=== PATIENT | male | born 1980 | race Two or more races ===

== ENCOUNTER 2022-06-06 16:55 | Outpatient (REF) | payer OTHER, SELFPAY ==
--- NOTE | ~2022-06-06 | XR_ITS ---
EXAMINATION: XR SHOULDER, RIGHT CLINICAL INFORMATION: Right COMPARISON: None TECHNIQUE: AP external rotation, Grashey, scapular Y, and axillary views of the right shoulder. FINDINGS: The bones and soft tissues are normal. No fracture. Glenohumeral and acromioclavicular alignment is anatomic with normal joint space. No abnormal soft tissue calcifications. XR/XR shoulder RT min 2V IMPRESSION: No acute osseous changes to explain patient's pain symptoms, no fracture or dislocation.
== END 2022-06-06 16:56 | disposition home or self-care (01) ==
LOC: HO.HOSX 16:55
PROVIDERS: Visit Provider Orthopaedic Surgery
DX: M67.921 Unspecified disorder of synovium and tendon, right upper arm (principal)
CPT/HCPCS: 73030

== ENCOUNTER 2022-07-01 15:00 | Outpatient (RCR) | payer OTHER, SELFPAY ==
--- NOTE | 2022-06-19 14:01 | MHC.PT.EP ---
[facility] [place] Office [place] Office [place] Office [address] Halina Draper [address] [phone] F: [phone] F: [phone] F: [phone] F: [phone] Physical Therapy Plan of Care Date of Evaluation: Date of Surgery: Diagnosis: Tendinopathy of right biceps tendon Assessment: 41 YO MALE REF TO PT W TENDINOPATHY OF Rt BICEPS TENDON- HE NOTES HE HAD BEEN WORKING OUT AT THE GYM AND OVERDID HIS PULLUPS, Rt ANT SH IRRIT NEVER COMPLETELY RESOLVED AND HE HAS SINCE HELD HIS UEs WORKOUTS. Pt HAD AN ORTHO CONSULT, XRAYS TAKEN, REF TO PT- HE IS Rt HAND DOMINANT. Pt HAS DECR POSTURAL AWARENESS, TIGHT PECT MM/ ANT SH; (+) STRENGTH DEFICITS IN POST RC/ SCAP MM, HYPOMOBILE THORACIC REGION. 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 HE IS LIMITED WITH SLEEPING-ESPEC SL , PERFORMING HIS REGULAR GYM WORKOUTS, AND HE NOTES HE IS UNABLE TO LIFT HEAVY ITEMS. Pt WOULD BENEFIT FROM PT TO ADDRESS THE ABOVE FINDINGS, EASE TISSUE TENSION/ PECT DOMINANCE, IMPROVE POSTURE, AND DEV A PROGR HEP TO BALANCE POST RC/ SCAP STRENGTH, AND ADDRESS SX MGMT TECHN. Frequency and Duration: The patient will be seen 2 x WK x 6 WKS (Pt GOING ON VACATION 07/02/22 x 3 WKS) Short Term Goals: *DECREASE ANT Rt SH PAIN TO 2-3/10 AT MAX *Pt INDEP SELF CORRECT POSTURE IN 3:3 TASKS *FULL, SX FREE AROM Rt SH COMPLEX / RESOLVED PECT DOMINANCE *RESUME REG ADLs EVIDENT W IMPROVED SPADI SCORE (AT EVAL 62/130) Shelter Goals: *Pt INDEP W PROGRESSIVE HEP AND SELF SX MGMT TECHN *Pt DEMON PROPER, EFFICIENT FORM W SIMULATED GYM EXER, TO REDUCE STRESS TO ANT Rt SH/ BICEP TENDON *5/5 Rt SH COMPLEX/ SCAP Treatment Plan: Modalities to reduce pain, spasms and effusion. Manual therapy to restore motion and function. Therapeutic exercise to improve strength and flexibility. Neuromuscular re-education for posture and balance. Therapeutic activities to return to functional activities of daily living. Electronically signed by: RHIANNON MOSSPT Please sign and return to therapist. Thank you for your referral.
--- NOTE | 2022-08-06 08:10 | MHC.PT.DC ---
[facility] [place] Office [place] Office [place] Office [address] Halina Draper 140 [facility] [phone] F: [phone] F: [phone] F: [phone] F: [phone] Physical Therapy Discharge Report Diagnosis: Tendinopathy of right biceps tendon Date of Surgery: Date of Evaluation: 06/19/22 Date of Discharge: 08/06/22 Treatments to Date: 3 Cancellations to Date: 1 No Shows to Date: 0 Discharge Status: Improved Function Independent with HEP Patient Elected to Stop Discharge Summary: Pt BENEFITTED FROM PT, SHE HAS A PROGRESSIVE HEP AND AT LAST ATTENDED PT APPT, SHE HAD REDUCED PAIN AND SXS- Pt WENT ON VACATION AND DID NOT RETURN FOR F/U APPTS. Electronically signed by: RHIANNON MOSS,PT Please sign and return to therapist. Thank you for your referral.
== END 2022-08-06 08:09 | disposition home or self-care (01) ==
LOC: HO.PT 15:00
PROVIDERS: Visit Provider Physician Assistant
DX: M67.921 Unspecified disorder of synovium and tendon, right upper arm (principal)
CPT/HCPCS: 97035; 97110; 97140; 97161

== ENCOUNTER 2023-05-26 10:33 | Outpatient (REF) | payer OTHER, SELFPAY ==
[2023-05-26 14:39] LABS: Alanine Aminotransferase 21 U/L (0-40); Albumin Level 4.3 g/dL (3.5-5.0); Alkaline Phosphatase 73 U/L (39-117); Anion Gap 12 (12-20); Aspartate Amino Transferase 18 U/L (5-37); Bilirubin Total 0.7 mg/dL (0.0-1.0); Blood Urea Nitrogen 14 mg/dL (9-16); Calcium 8.9 mg/dL (8.4-10.2); Carbon Dioxide 26 mmol/L (22-29); Chloride 107 mmol/L (96-108); Cholesterol 179 mg/dL (<200); Estimated Glomerular Filt Rate > 60; Glucose Random 91 mg/dL (60-115); HDL Cholesterol 49 mg/dL (>40); LDL Cholesterol Calculated 114 mg/dL (<100); Potassium 3.7 mmol/L (3.3-5.1); Sodium 141 mmol/L (135-145); Total Protein 6.6 g/dL (6.5-8.0); Triglycerides 83 mg/dL (<150)
[2023-05-26 14:55] LABS: TSH reflex Free T4 0.41 uIU/mL (0.32-4.0)
== END 2023-05-26 10:34 | disposition home or self-care (01) ==
LOC: HO.CHCLDS 10:33
PROVIDERS: Visit Provider Internal Medicine
DX: Z00.00 Encounter for general adult medical examination without abnormal findings (principal); E78.00 Pure hypercholesterolemia, unspecified
CPT/HCPCS: 36415; 80053; 80061; 84443

== ENCOUNTER 2024-09-16 16:11 | Outpatient (REF) | payer OTHER, SELFPAY ==
--- OUTSIDE RECORDS SUMMARY | 2024-09-16 18:01 | XMS_ITS | Encounter Summary ---
Author Organization [employer] Address [address] [address] Care Team Providers Care Rental Representative Name Role Phone Allyssa Angelo MD Primary Care Provider [phone]- [phone] Reason for Visit * Reason Comments Follow-up Encounter Details Date Type Department Care Team ([facility] Contact Info) Description 09/16/2024 4:00 PM EDT Office Visit [facility] [address] [place] [address] Allyssa Angelo MD [address] [place] [address] Other specified glaucoma, unspecified laterality (Primary Dx); Premature ejaculation Social History Tobacco Use Types Packs/Day Years Used Date Smoking Tobacco: Unknown Smokeless Tobacco: Never Comments:Smokes Hooka every 2 days Alcohol Use Standard Drinks/Week Comments Never 0 (1 standard drink = 0.6 oz pur e alcohol) Depression Answer Date Recorded Patient Health Questionnaire-9 Score 4 05/26/2023 Patient Health Questionnaire-9 Score 4 05/26/2023 Last PHQ-9: Questionnaire Data Not on file 1 07/27/2022 Housing Stability Answer Date Recorded What is your housing situation today? I have maggie gutiérrez 05/19/[address] you li ve. Do you have problems with any of the following? None of the above 05/19/2023 Food Insecurity Answer Date Recorded Within the past 12 months, y ou worried that your food would run out before you got money to buy more: Never True 05/19/2023 Within the past 12 months,th e food you bought just didn't last and you didn't have enough money to get more: Never True 04/2023 Transportation Answer Date Recorded In the past 12 months, has l ack of transportation kept you from medical appts, meetings, work or from getting things needed for daily living? No 05/19/2023 Utilities Answer Date Recorded In the past 12 months, has t he electric, gas, oil or water company threatened to shut off services in your home? No 05/19/2023 Depression Answer Date Recorded Patient Health Questionnaire-2 Score 3 05/26/2023 Sex and Gender Information Value Date Recorded Sex Assigned at Male 04/08/2022 10:32 AM EDT Legal Sex Male 10:32 AM EDT Gender Identity Male 04/08/2022 10:32 AM EDT Sexual Orientation Straight 04/08/2022 10 :32 AM EDT documented as of this encounter Last Filed Vital Signs Vital Sign Reading Time Taken Comments Blood Pressure 116/76 09/16/2024 3:54 PM EDT Pulse 71 09/16/2024 3:54 PM EDT Temperature 36.7 ??C (98 ??F) 09/16/2024 3:54 PM EDT Respiratory Rate 20 09/16/2024 3:54 PM EDT Oxygen Saturation 98% 09/16/2024 3:54 PM EDT Inhaled Oxygen Concentration - - Weight 87.1 kg (192 lb) 09/16/2024 3:54 PM EDT Height 177.8 cm (5' 10 ) 09/16/2024 3:54 PM EDT Body Mass Index 27.55 09/16/2024 3:54 PM EDT documented in this encounter Progress Notes * Allyssa Angelo MD - 09/16/2024 4:00 PM EDT Subjective Patient ID: Reno Frias is a 43 y.o. male who presents for Follow-up. HPI 1) history of premature ejaculation. Patient is on Paxil which is very helpful. Currently on 10 mg once a day. Patient would like an increased dose because he feels that the current dose is a left effective than before. He denies any acute health events since the last office visit. 2) history of glaucoma. No change in his vision. He follows up with ophthalmology. 3) patient has been sleeping better recently and feels less tired. The workup ordered is not done yet. Patient Active Problem List Diagnosis Glaucoma Premature ejaculation Current Outpatient Medications on File Prior to Visit Medication Sig Dispense Refill Multiple Vitamin (Multivitamin) tablet TAKE ONE TABLET EVERY MORNING 30 tablet 11 [DISCONTINUED] PARoxetine (Paxil) 10 MG tablet TAKE ONE TABLET EVERY MORNING 30 tablet 11 No current facility-administered medications on file prior to visit. No Known Allergies Review of Systems Constitutional: Negative for appetite change, chills and diaphoresis. Eyes: Negative for photophobia, pain and redness. Respiratory: Negative for cough, shortness of breath and stridor. Genitourinary: Negative for decreased urine volume, genital sores, hematuria, penile discharge, penile pain, penile swelling, scrotal swelling, testicular pain and urgency. Objective Physical Exam Constitutional: General: He is not in acute distress. Appearance: Normal appearance. He is not ill-appearing, toxic-appearing or diaphoretic. Cardiovascular: Rate and Rhythm: Normal rate. Pulmonary: Effort: Pulmonary effort is normal. Neurological: General: No focal deficit present. Mental Status: He is alert. Assessment/Plan Diagnoses and all orders for this visit: Other specified glaucoma, unspecified laterality Comments: Follows up with ophthalmology Premature ejaculation Comments: Paxil dose increased to 20 mg once a day To report any untoward side effect. Orders: - PARoxetine (Paxil) 20 MG tablet; Take 1 tablet (20 mg) by mouth in the morning. Reminded to do the blood work. He will be contacted with the results. documented in this encounter Plan of Treatment Not on file documented as of this encounter Visit Diagnoses Diagnosis Other specified glaucoma, unspecified laterality- Primary Premature ejaculation documented in this encounter Additional Health Concerns Assessment Noted Time PHQ-9 Depression Total Score: 4 05/26/20 23 9:48 AM EST documented as of this encounter Care Teams Rental Representative Relationship Specialty Start Date End Date Allyssa Angelo MD [address] [place] [id number] PCP - General Internal Medicine 10/01/17 documented as of this encounter
--- OUTSIDE RECORDS SUMMARY | 2024-09-16 18:01 | XMS_ITS | Clinical Summary ---
Author Organization [employer] Address [address] [place] [address] [address] [place] [address] Care Team Providers Care Forming Operator Name Role Phone Allyssa Angelo MD Primary Care Provider +1- [phone] Allergies No known active allergies Medications Multiple Vitamin (Multivitamin) tabletIndicatio ns:Annual physical exam TAKE ONE TABLET EVERY MORNING 30 tablet 11 08/17/19 25 Active PARoxetine (Paxil) 20 MG tabletIndicatio ns:Premature ejaculation Take 1 tablet (20 mg) by mouth in the morning. 90 tablet 2 09/17/19 25 Active PARoxetine (Paxil) 10 MG tabletIndicatio ns:Premature ejaculation TAKE ONE TABLET EVERY MORNING 30 tablet 11 08/17/19 25 025 Discontinued(Re order (will not trigger notification to Pharmacy)) Active Problems Problem Noted Date Diagnosed Date Glaucoma 09/16/2024 Premature ejaculation 09/16/2024 Encounters Date Type Department Care Team Description 09/16/2024 4:00 PM EDT Office Visit [facility] [address] [place] [address] Allyssa Angelo MD Other specified glaucoma, unspecified laterality (Primary Dx); Premature ejaculation 09/16/2024 Travel 09/06/2024 Telephone [facility] [address] [place] [address] Allyssa Angelo MD Chart Prep 08/16/2024 Refill [facility] [address] [place] [address] Allyssa Angelo MD Premature ejaculation; Annual physical exam 08/12/2024 Refill [facility] [address] [place] [address] Ginger Rowley MD Annual physical exam from Last 3 Months Family History Medical History Relation Name Comments Diabetes Paternal Grandfather Relation Name Status Comments Paternal Grandfather Social History Tobacco Use Types Packs/Day Years Used Date Smoking Tobacco: Unknown Smokeless Tobacco: Never Tobacco Cessation:Counseling Given: No Comments:Smokes Hooka every 2 days Alcohol Use [...] Orientation Straight 04/08/2022 10 :32 AM EDT Last Filed Vital Signs Vital Sign Reading [...] Mass Index 27.55 09/16/2024 3:54 PM EDT Plan of Treatment Health Maintenance Due Date Last Done Comments HIV Screening 1981 Alcohol/Substance Use Screening 1993 Family Planning (PISQ) 1996 Hepatitis C Screening 12/15/1999 DTaP/Tdap/Td Vaccines (1 - Tdap) 2000 Hepatitis B Vaccines (1 of 3 - 19+ 3-dose series) 2000 Depression Screening 05/26/2024 05/26/2023, 05/26/2023 SDOH Screening 07/29/2024 07/29/2023 Influenza Vaccine (#1) 2024 Postp oned from 02/08/2024 (Patient Refused) COVID-19 Vaccine (1 - 2023-2 5 season) 2025 Postponed from 02/07 (Patient Refused) Tobacco Screening 09/16/2025 09/16/2024 Lipid Panel 05/26/2028 05/26/2023, 01/12/2021 Zoster Vaccines (1 of 2) 12/15/2031 RSV Patients and Patients Aged 60 years or older (1 - 1-dose 75+ series) 2056 HIB Vaccines Aged Out No longer eligi ble based on patient's age to complete this topic HPV Vaccines Aged Out No longer eligi ble based on patient's age to complete this topic Hepatitis A Vaccines Aged Out No long er eligible based on patient's age to complete this topic IPV Vaccines Aged Out No longer eligi ble based on patient's age to complete this topic Meningococcal Vaccine Aged Out No daiana alcira eligible based on patient's age to complete this topic Pneumococcal Vaccine: Pediatrics (0 to 5 Years) and At-Risk Patients (6 to 49) Years) Aged Out No longer eligible b ased on patient's age to complete this topic RSV under 20 months Aged Out No longe r eligible based on patient's age to complete this topic Rotavirus Vaccines Aged Out No longer eligible based on patient's age to complete this topic Procedures Procedure Name Priority Date/Time Associated Diagnosis Comments LIPID PANEL, STANDARD Routine 05/26/2023 10:35 AM EST Hypercholesterolemi a from Last 3 Months or Most Recently Relevant to Health Maintenance Results * (ABNORMAL) Lipid Panel, Standard (05/26/2023 10:35 AM EST) Triglycerides 83 <150 mg/dL [facility] Comment:Desirable Triglyceri de: less than 150 mg/dLBorderline High Triglyceride 150-199 mg/dLHigh Triglyceride: 200-499 mg/dLVery High Triglyceride: greater than or equal to 5OO mg/dL Cholesterol 179 <200 mg/dL [facility] Comment:Desirable Cholestero l: less than 200 mg/dLBorderline High Cholesterol: 200-239 mg/dLHigh Cholesterol: greater than 239 mg/dL LDL Cholesterol Calculated 114(H) <100 mg/dL [facility] Comment:Desirable LDL: less than 100 mg/dLNear Optimal/Above Optimal LDL: 110- 129 mg/dLBorderline High LDL: 130-159 mg/dLHigh LDL: 160-189 mg/dLVery High LDL: greater than or equal to 190 mg/dL HDL Cholesterol 49 >40 mg/dL [facility] Comment:Desirable HDL: great er than 40 mg/dL Note: This HDL assay may give artificially low results in patients with liver disease. Blood Venous blood specimen / Unknown 05/26/2023 10:35 AM EST 05/26/2023 2:05 PM EST us Allyssa Angelo MD LAB BLOOD ORDERABLES Final Result [facility] [address] [place] [phone] from Last 3 Months or Most Recently Relevant to Health Maintenance Insurance , [address] [place] [address] Care Teams Forming Operator Relationship Specialty Start Date End Date Allyssa Angelo MD [address] [place] [id number] PCP - General Internal Medicine 10/01/17
--- OUTSIDE RECORDS SUMMARY | 2024-09-16 18:01 | XMS_ITS | Encounter Summary ---
Author Organization [employer] Address [address] [facility] [address] [place] [address] Care Team Providers Care Load Builder Name Role Phone Allyssa Angelo MD Primary Care Provider [phone]- [phone] Encounter Details Date Type Department Care Team (Latest Contact Info) Description 09/16/2024 Travel Social History Tobacco Use Types Packs/Day Years [...] t he electric, gas, oil or water Selly[employer] threatened to shut off services in your home? No 05/19/2023 Depression Answer Date Recorded Patient Health Questionnaire-2 Score 3 05/26/2023 Sex and Gender Information Value Date Recorded Sex Assigned at Male 04/08/2022 10:32 AM EDT Legal Sex Male 10:32 AM EDT Gender Identity Male 04/08/2022 10:32 AM EDT Sexual Orientation Straight 04/08/2022 10 :32 AM EDT documented as of this encounter Plan of Treatment Not on file documented as of this encounter Visit Diagnoses Not on filedocumented in this encounter Additional Health Concerns Assessment Noted Time PHQ-9 Depression Total Score: 4 05/26/20 23 9:48 AM EST documented as of this encounter Care Teams Load Builder Relationship Specialty Start Date End Date Allyssa Angelo MD [address] [place] [address] PCP - General Internal Medicine 10/01/17 documented as of this encounter
[2024-09-16 18:33] LABS: Alanine Aminotransferase 52 U/L (0-40); Albumin Level 4.6 g/dL (3.5-5.0); Alkaline Phosphatase 89 U/L (39-117); Anion Gap 13 (12-20); Aspartate Amino Transferase 39 U/L (5-37); Bilirubin Total 0.5 mg/dL (0.0-1.0); Blood Urea Nitrogen 18 mg/dL (9-16); Calcium 9.5 mg/dL (8.4-10.2); Carbon Dioxide 30 mmol/L (22-29); Chloride 105 mmol/L (96-108); Cholesterol 251 mg/dL (<200); Estimated Glomerular Filt Rate > 60; Glucose Random 88 mg/dL (60-115); HDL Cholesterol 51 mg/dL (>40); Potassium 4.3 mmol/L (3.3-5.1); Sodium 144 mmol/L (135-145); Total Protein 7.4 g/dL (6.5-8.0); Triglycerides 526 mg/dL (<150)
[2024-09-16 18:56] LABS: Folate 7.4 ng/mL (> or = 4.0); Vitamin B12 573 pg/mL (200-900)
[2024-09-16 19:17] LABS: TSH reflex Free T4 0.57 uIU/mL (0.32-4.0); Vitamin D 25-OH Total 36.1 ng/mL (>30)
== END 2024-09-16 16:12 | disposition home or self-care (01) ==
LOC: HO.CHCLDS 16:11
PROVIDERS: Visit Provider Internal Medicine
DX: Z13.6 Encounter for screening for cardiovascular disorders (principal); R53.83 Other fatigue
CPT/HCPCS: 36415; 80053; 80061; 82306; 82607; 82746; 84443

== ENCOUNTER 2025-01-21 10:22 | Outpatient (REF) | payer OTHER, SELFPAY ==
--- OUTSIDE RECORDS SUMMARY | 2025-01-21 10:33 | XMS_ITS | Encounter Summary ---
Author Organization [email or web address] Address [address] [place] [address] [address] [place] [address] Care Team Providers Care Stitcher Tape Controlled Machine Name Role Phone Allyssa Angelo MD Primary Care Provider +1- [phone] Reason for Visit * Reason Onset Date Comments Referral 01/20/2025 Called pt to hannah kimberley if he RECEIVED a call from [facility] he said they called him, he couldn't booked appt his going [place] them back [place]. Encounter Details Date Type Department Care Team (Late st Contact Info) Description 01/20/2025 Telephone [facility] [address] [place], [place] [phone] Allyssa Angelo MD [address] [place], [place] [phone] Referral (Called pt to verify if he RECEIVED a call from [facility] he said they called him, he couldn't booked appt his going to call them back when he comes [place] from [place] country.) Social History Tobacco Use Types Packs/Day Years [...] documented as of this encounter Care Teams Stitcher Tape Controlled Machine Relationship Specialty Start Date End Date Allyssa Angelo MD [address] [place] [id number] PCP - General Internal Medicine 10/01/17 documented as of this encounter
[2025-01-21 14:36] LABS: INTERNATIONAL NORM RATIO 0.9 (0.9-1.1); Prothrombin Time 10.5 SEC (10.9-12.4)
[2025-01-21 14:51] LABS: Cholesterol 211 mg/dL (<200); HDL Cholesterol 46 mg/dL (>40); Iron 84 mcg/dL (45-160); Percent Iron Saturation 30 % (15-50); Total Iron Binding Capacity 276 mcg/dL (228-428); Triglycerides 90 mg/dL (<150); Unsaturated Iron Binding 192 ug/dL
[2025-01-21 14:58] LABS: Ferritin 105 ng/mL (20-250)
[2025-01-22 08:12] LABS: HBS Num1 0.37 mIU/mL (0-7.99); HBc Num1 0.07 S/CO (0.00-0.79); HBsAGNum1 0.41 S/CO (0.00-0.99); Hepatitis A Antibody IgM 0.37 Index (0-0.79); Hepatitis B Surface Antigen Negative (Negative); ~HepC Num1 0.11 S/CO (0.00-0.79); ~Hepatitis A Antibody IgM Nonreactive (Nonreactive); ~Hepatitis B Surface Antibody NONREACTIVE (Nonreactive); ~Hepatitis C Antibody Nonreactive (Nonreactive)
== END 2025-01-21 10:23 | disposition home or self-care (01) ==
LOC: HO.CHCLDS 10:22
PROVIDERS: Visit Provider Internal Medicine
DX: Z11.59 Encounter for screening for other viral diseases (principal); Z01.84 Encounter for antibody response examination; R74.01 Elevation of levels of liver transaminase levels
CPT/HCPCS: 36415; 80061; 82728; 82784; 83540; 85610; 86704; 86706; 86709; 86803; 87340